=== PATIENT | male | born 1960 | race Caucasian/White ===

== ENCOUNTER 2017-04-29 09:27 | Day surgery (SDC) | payer OTHER ==
[2017-04-27 12:42] VITALS: BMI 33.2
--- NOTE | 2017-04-28 17:01 | HP ---
- Patient Scheduled date of Surgery: 04/29/17 Scheduled Surgical Procedure: Phacoemulsification and cataract extraction with PCIOL Affected Eye: Right Chief Complaint (Indication for surgery): Decreased vision affecting ADLs - Ocular History Other Eye History: Other (narrow angles) Eye Medications: vigamxo Previous Eye Surgery: s/p lasik surgery - Medical History Illnesses: Anemia, COPD, Hypertension, Hypercholesterolemia Current Medications: Ambulatory Orders Multivitamin [One Daily] 1 each PO DAILY 04/27/17 Naproxen Sodium [Aleve] 220 mg PO PRN PRN 04/27/17 Allergies/Adverse Reactions: Allergies Allergy/AdvReac Type Severity Reaction Status Date / Time amoxicillin Allergy "HIVES" Verified 04/27/17 12:42 Ocular Examination - Best Corrected Visual Acuity Distance: Right eye: LP Distance: Left eye: 20/50 - External/Slit Lamp Examination Abnormalities: narrow angles - Intraocular Pressure Intraocular Pressure - Right eye: 8 Intraocular Pressure-Left eye: 9 - Lens Lens: 4+ NS white with brunescence - Vitreous/Retina Vitreous/Retina: C:D no view, bscan retina flat - Special Examination M - Right eye: no reflex M - Left eye: _4.75 K - Right eye: 44/44.5 108 K - Left eye: 44/44.5 x 90 AL - Right eye: 23.64 AL - Left eye: 23.81 IOL bag: +19.5 d hoya 251 IOL sulcus: +19.0 d hoya 231 IOL AC: +16.5 d MTA 4uo - Impression Impression: Cataract Right Eye, Other (hypermature cataract right eye) - Plan Plan: Phacoemulsification and cataract extraction - IOL Right eye Post-hospital care will be provided in office on: 04/30/17
--- NOTE | 2017-04-28 17:01 | HP ---
History & Physical Update - History History: No Change - Physical Physical: No Change - Assessment Assessment: No Change - Plan Plan: No Change
[~2017-04-29 09:27] MED LIST: ACETAMINOPHEN 325 MG TABLET (FP) PO PRN; ACETYLCHOLINE 1:100 INTRA-OCUL 20 MG/2 ML KIT IO ONE; BSS (NA/CA/MG/K) BALANCED SALT SOLUTION OPHTH SOLN 15 ML BOTTLE OD ONE; CIPROFLOXACIN HCL 0.3% OPHTH 2.5ML BOTTLE OP SCH; DICLOFENAC SODIUM 0.1% OPHTHALMIC 2.5ML BOTTLE OP SCH; MANNITOL 25% 12.5 GM/50 ML VIAL IVPB ONE; PHENYLEPHRINE 2.5% OPHTH SOLN 15 ML BOTTLE OP SCH; POVIDONE-IODINE 5% OPHTHALMIC PREP 30 ML SOLUTION OD ONE; TOBRAMYCIN/DEXAMETHASONE OPHTH. OINTMENT 1 TUBE TP ONE; TROPICAMIDE 1% OPHTH SOLN 15 ML BOTTLE OP SCH
[2017-04-29] MEDS ORDERED: CIPROFLOXACIN 0.3% EYE DROPS 5 ML BOTTLE ONE (09:42)
[2017-04-29] MEDS ORDERED: PHENYLEPHRINE 2.5% OPHTH SOLN 15 ML BOTTLE ONE (09:42)
[2017-04-29] MEDS ORDERED: TROPICAMIDE 1% OPHTH SOLN 15 ML BOTTLE ONE (09:42)
[2017-04-29] MEDS ORDERED: DICLOFENAC SODIUM 0.1% OPHTHALMIC 2.5ML BOTTLE ONE (09:52)
[2017-04-29 09:58] VITALS: TEMP 98.2
[2017-04-29] MEDS ORDERED: MANNITOL 25% 12.5 GM/50 ML VIAL IVPB ONE ×3 (10:48→11:01)
[2017-04-29] MEDS ORDERED: MIDAZOLAM HCL 2 MG/2 ML SINGLE DOSE VIAL ONE (11:52)
[2017-04-29] MEDS ORDERED: TRYPAN BLUE 0.5 ML DISP.SYRIN ONE (11:56)
[2017-04-29] MEDS ORDERED: LIDOCAINE HCL/PF 2% SDV 5ML VIAL INF ONE (12:00)
[2017-04-29] MEDS ORDERED: BUPIVACAINE HCL/PF 0.75% 10 ML VIAL RB ONE (12:00)
[2017-04-29] MEDS ORDERED: POVIDONE-IODINE 5% OPHTHALMIC PREP 30 ML SOLUTION OD ONE (12:02)
[2017-04-29] MEDS ORDERED: EPINEPHrine/PF 1 MG/1 ML (1:1,000) AMPULE ONE (12:11)
[2017-04-29] MEDS ORDERED: TRYPAN BLUE 0.5 ML DISP.SYRIN TP ONE (12:13)
[2017-04-29] MEDS ORDERED: CHONDROITIN SU A/HYALUR SOD 1 KIT IO ONE (12:13)
[2017-04-29] MEDS ORDERED: EPINEPHrine/PF 1 MG/1 ML (1:1,000) AMPULE SQ ONE ×2 (12:13→12:23)
[2017-04-29] MEDS ORDERED: BSS (NA/CA/MG/K) BALANCED SALT SOLUTION OPHTH SOLN 15 ML BOTTLE OD ONE (12:13)
[2017-04-29] MEDS ORDERED: TOBRAMYCIN/DEXAMETHASONE OPHTH. OINTMENT 1 TUBE TP ONE (12:53)
--- NOTE | 2017-04-29 12:58 | OP ---
Ophthalmology Operative Note Pre-Operative Diagnosis: Other (hypermature intumescent cataract right eye) Affected Eye: Right Operation: Phacoemulsification and cataract extraction with PCIOL Findings: hypermature, intumescent cataract Post-Operative Diagnosis: Same as Pre-op Machine Stapler: Elina Anesthesiologist: Nicole Pearson Anesthesia: Retrobulbar Specimens Removed: none Estimated blood loss: < 1cc Drains & Tubes with Location: none Operative Report Dictated: Yes
[2017-04-29 13:29] VITALS: PULSE 100
[2017-04-29 13:51] VITALS: BP 150/84
--- NOTE | 2017-04-29 17:47 | OP ---
DATE OF OPERATION: 04/29/2017 PREOPERATIVE DIAGNOSIS: Hypermature cataract, right eye. POSTOPERATIVE DIAGNOSIS: Hypermature cataract, right eye. PROCEDURE: Phacoemulsification and cataract extraction with insertion of posterior chamber intraocular lens, right eye using trypan blue. SURGEON: Gianna Segura MD GAMBLING MONITOR: None. ANESTHESIA: Retrobulbar block. ANESTHESIOLOGIST: Nicole Pearson MD OPERATIVE PROCEDURE: The patient received 25 g of IV mannitol in 100 mL over 1/2 hour prior to the cataract surgery and then was brought to the operating room and given intravenous sedation. The patient then received local anesthesia using a 50/50 mixture of lidocaine 2% and Marcaine 0.75%. A Van Lint lid block was delivered to the right eye using 4 mL of the mixture and a retrobulbar injection using 4 mL of the mixture. The patient was then prepped and draped in the usual sterile fashion so as to expose only the right eye. Ophthalmic Betadine was instilled into the inferior fornix, and the lashes were taped out of the surgical field. An eyelid speculum was placed into the right eye. A paracentesis was made in superior clear cornea at the limbus. Next, 1 mL of dilute epinephrine 1:10,000 was injected into the anterior chamber. An air bubble was then injected into the anterior chamber, and trypan blue was dripped on the anterior capsular edge. Viscoelastic material was instilled into the anterior chamber via the paracentesis. A 2.4-mm keratome was then used to create the main incision in temporal clear cornea at the limbus. A continuous curvilinear capsulorrhexis was begun. However, continuous stream of milky fluid was released from the cataract. Therefore, this was aspirated, and the continuous curvilinear capsulorrhexis was completed using the cystotome and Utrata forceps. Hydrodissection was not performed because the nucleus was noted to be freely rotating on its own. The phacoemulsification tip was inserted via the main wound and used to sculpt 2 perpendicular grooves into the lens nucleus. The nucleus was crackled into 4 quadrants. Each quadrant was lifted out of the capsule into the iris plane and individually phacoemulsified. The remaining cortical material which was very scant was aspirated using the irrigation and aspiration port. The capsular bag was inflated using Provisc, and a preloaded Hoya lens model 251, power +19.5 diopters was injected into the capsular bag and centered using a Sinskey hook. The residual viscoelastic material was removed from the anterior chamber using irrigation and aspiration. The wound edges were hydrated using BSS. However, the chamber continued to shallow, and the wound was slightly leaky. Therefore, one 10-0 nylon suture was placed across the wound. The wound was again tested for leakage. It was found to be watertight. TobraDex ointment was placed in the eye. The speculum was removed from the eye, and the eyelid was closed. A sterile dressing and shield were placed over the eye, and the patient was transferred to the recovery room in stable condition, told to follow up in 1 day. GIANNA SEGURA M.D. [id number]
== END 2017-04-29 13:51 | disposition home or self-care (01) ==
LOC: JASU-SURG 09:27
PROVIDERS: ATTEND Ophthalmology
PROC: 08RJ3JZ Replacement of Right Lens with Synthetic Substitute, Percutaneous Approach (ICD-10-PCS; principal; 2017-04-29 10:30)
DX: H25.21 Age-related cataract, morgagnian type, right eye (principal)

== ENCOUNTER 2017-05-27 07:51 | Day surgery (SDC) | payer OTHER ==
[2017-05-26 10:57] VITALS: BMI 33.2
--- NOTE | 2017-05-26 17:33 | HP ---
History & Physical Update - History History: No Change - Physical Physical: No Change - Assessment Assessment: No Change - Plan Plan: No Change
--- NOTE | 2017-05-26 17:33 | HP ---
- Patient Scheduled date of Surgery: 05/27/17 Scheduled Surgical Procedure: Phacoemulsification and cataract extraction with PCIOL Affected Eye: Left Chief Complaint (Indication for surgery): Decreased vision affecting ADLs - Ocular History Other Eye History: Other (XT, narrow angles) Eye Medications: vigamox Previous Eye Surgery: s/p lasik, s/p ce/pciol OD 1:10,000 block - Medical History Illnesses: COPD (smoker) Current Medications: Ambulatory Orders Multivitamin [One Daily] 1 each PO DAILY 04/27/17 Allergies/Adverse Reactions: Allergies Allergy/AdvReac Type Severity Reaction Status Date / Time amoxicillin Allergy "HIVES" Verified 04/29/17 10:19 Ocular Examination - Best Corrected Visual Acuity Distance: Right eye: 20/20- Distance: Left eye: 20/60 - External/Slit Lamp Examination Abnormalities: none - Intraocular Pressure Intraocular Pressure - Right eye: 8 Intraocular Pressure-Left eye: 8 - Lens Lens: 2-3+ NS, 2+ cortical 2+ psc - Vitreous/Retina Vitreous/Retina: c:d 0.1 m/v/p wml - Special Examination M - Right eye: plano M - Left eye: -5.25-1.25 x 015 K - Right eye: 44.5/45 x 105 K - Left eye: 43.75/44.25 x 107 AL - Right eye: 23.64 AL - Left eye: 23.81 IOL bag: +19.5 d hoya 251 IOL sulcus: +19.0 hoya 231 IOL AC: +16.5 d MTA 4uo - Impression Impression: Cataract Left Eye - Plan Plan: Phacoemulsification and cataract extraction - IOL Left eye Post-hospital care will be provided in office on: 05/28/17
[~2017-05-27 07:51] MED LIST changes: -ACETAMINOPHEN 325 MG TABLET (FP) PO PRN; -ACETYLCHOLINE 1:100 INTRA-OCUL 20 MG/2 ML KIT IO ONE; -BSS (NA/CA/MG/K) BALANCED SALT SOLUTION OPHTH SOLN 15 ML BOTTLE OD ONE; -CIPROFLOXACIN HCL 0.3% OPHTH 2.5ML BOTTLE OP SCH; -DICLOFENAC SODIUM 0.1% OPHTHALMIC 2.5ML BOTTLE OP SCH; -MANNITOL 25% 12.5 GM/50 ML VIAL IVPB ONE; -PHENYLEPHRINE 2.5% OPHTH SOLN 15 ML BOTTLE OP SCH; -POVIDONE-IODINE 5% OPHTHALMIC PREP 30 ML SOLUTION OD ONE
[2017-05-27] MEDS ORDERED: LIDOCAINE HCL 2% JELLY (5 ML/TUBE) ONE (08:20)
[2017-05-27] MEDS ORDERED: BSS (NA/CA/MG/K) BALANCED SALT SOLUTION OPHTH SOLN 15 ML BOTTLE ONE (08:20)
[2017-05-27] MEDS ORDERED: TOBRAMYCIN/DEXAMETHASONE OPHTH. OINTMENT 1 TUBE ONE (08:20)
[2017-05-27] MEDS ORDERED: LIDOCAINE HCL/PF 1% SDV 5ML VIAL ONE (08:20)
[2017-05-27] MEDS ORDERED: DICLOFENAC SODIUM 0.1% OPHTHALMIC 2.5ML BOTTLE ONE (08:29)
[2017-05-27] MEDS ORDERED: PHENYLEPHRINE 2.5% OPHTH SOLN 15 ML BOTTLE ONE (08:29)
[2017-05-27] MEDS ORDERED: CIPROFLOXACIN 0.3% EYE DROPS 5 ML BOTTLE ONE (08:29)
[2017-05-27] MEDS: PHENYLEPHRINE 2.5% OPHTH SOLN 15 ML BOTTLE OP SCH ×3 (08:45→08:55)
[2017-05-27] MEDS: DICLOFENAC SODIUM 0.1% OPHTHALMIC 2.5ML BOTTLE OP SCH ×3 (08:45→08:55)
[2017-05-27] MEDS: TROPICAMIDE 0.5% OPHTHALMIC SOLN 15 ML BOTTLE ONE ×3 (08:45→08:55)
[2017-05-27] MEDS ORDERED: ACETAMINOPHEN 325 MG TABLET (FP) PO PRN (08:45)
[2017-05-27] MEDS: CIPROFLOXACIN HCL 0.3% OPHTH 2.5ML BOTTLE OP SCH ×3 (08:45→08:55)
[2017-05-27] MEDS: CYCLOPENTOLATE HCL 1% OPHTH SOLN 2 ML BOTTLE ONE ×3 (08:45→08:55)
[2017-05-27 08:51] VITALS: TEMP 98.4
[2017-05-27] MEDS ORDERED: CYCLOPENTOLATE HCL 1% OPHTH SOLN 2 ML BOTTLE OS SCH (09:30)
[2017-05-27] MEDS ORDERED: LIDOCAINE HCL 2% JELLY (5 ML/TUBE) TP ONE (09:43)
[2017-05-27] MEDS ORDERED: TRYPAN BLUE 0.5 ML DISP.SYRIN ONE (09:48)
[2017-05-27] MEDS ORDERED: EPINEPHrine/PF 1 MG/1 ML (1:1,000) AMPULE ONE (09:48)
[2017-05-27] MEDS ORDERED: MIDAZOLAM HCL 2 MG/2 ML SINGLE DOSE VIAL ONE (09:51)
[2017-05-27] MEDS ORDERED: POVIDONE-IODINE 5% OPHTHALMIC PREP 30 ML SOLUTION OS ONE (09:52)
[2017-05-27] MEDS ORDERED: CHONDROITIN SU A/HYALUR SOD 1 KIT IO ONE (09:59)
[2017-05-27] MEDS ORDERED: BSS (NA/CA/MG/K) BALANCED SALT SOLUTION OPHTH SOLN 15 ML BOTTLE OS ONE (09:59)
[2017-05-27] MEDS ORDERED: LIDOCAINE HCL 1% PRESERVATIVE FREE - 30ML VIAL IO ONE (09:59)
[2017-05-27] MEDS ORDERED: EPINEPHrine/PF 1 MG/1 ML (1:1,000) AMPULE SQ ONE ×2 (09:59→10:05)
[2017-05-27] MEDS ORDERED: TOBRAMYCIN/DEXAMETHASONE OPHTH. OINTMENT 1 TUBE TP ONE (10:21)
--- NOTE | 2017-05-27 10:28 | OP ---
Ophthalmology Operative Note Pre-Operative Diagnosis: Cataract Affected Eye: Left Operation: Phacoemulsification and cataract extraction with PCIOL Findings: cataract left eye Post-Operative Diagnosis: Same as Pre-op Superintendent Schools: None Anesthesiologist: Lexi Claros MD Anesthesia: Topical Specimens Removed: none Estimated blood loss: none Drains & Tubes with Location: none Operative Report Dictated: Yes
--- NOTE | 2017-05-27 10:51 | OP ---
DATE OF OPERATION: DATE OF DICTATION: 05/27/2017 PREOPERATIVE DIAGNOSIS: Nuclear sclerotic cataract, left eye. POSTOPERATIVE DIAGNOSIS: Nuclear sclerotic cataract, left eye. PROCEDURE: Phacoemulsification and cataract extraction with insertion of posterior chamber intraocular lens, left eye. SURGEON: Gianna Segura MD DATA PROCESSING MANAGER: None. ANESTHESIA: Topical. ANESTHESIOLOGIST: Lexi Claros MD OPERATIVE PROCEDURE: Following satisfactory intravenous sedation, the patient received viscous lidocaine gel 2% and then was prepped and draped in the usual sterile fashion so as to expose only the left eye. Ophthalmic Betadine was instilled into the inferior fornix. The lashes were taped out of the surgical field. An eyelid speculum was placed into the left eye. A paracentesis was made in inferior clear cornea at the limbus. Next, 0.5 mL of nonpreserved lidocaine 1% was injected into the anterior chamber. Next, 1 mL of dilute epinephrine 1:100,000 was injected into the anterior chamber. Viscoelastic material was instilled into the anterior chamber via the paracentesis. A 2.4-mm keratome was then used to create the main incision in temporal clear cornea at the limbus. A continuous curvilinear capsulorrhexis was performed using a cystotome and Utrata forceps. Hydrodissection of the lens cortex was performed using BSS on a cannula until the nucleus was noted to be freely rotating. The phacoemulsification tip was inserted via the main wound and used to sculpt 2 perpendicular grooves into the lens nucleus. The nucleus was cracked into 4 quadrants. Each quadrant was lifted out of the capsule into the iris plane and individually phacoemulsified. The remaining cortical material was then aspirated using the irrigation and aspiration port. The capsular bag was inflated using Provisc, and a preloaded Hoya lens model 251, power +19.5 diopters was injected into the capsular bag and centered using a Sinskey hook. The residual Viscoelastic material was removed from the anterior chamber using irrigation and aspiration. The wound edges were hydrated using BSS. The wound was tested for leakage. It was found to be watertight. TobraDex ointment was placed in the eye and the speculum was removed from the eye. The sterile dressing and shield were placed over the eye, and the patient was transferred to the recovery room and told to follow up in 1 day. GIANNA SEGURA M.D. [id number]
[2017-05-27 11:31] VITALS: BP 115/71; PULSE 73
== END 2017-05-27 12:00 | disposition home or self-care (01) ==
LOC: JASU-SURG 07:51
PROVIDERS: ATTEND Ophthalmology
PROC: 08RK3JZ Replacement of Left Lens with Synthetic Substitute, Percutaneous Approach (ICD-10-PCS; principal; 2017-05-27 09:15)
DX: H25.12 Age-related nuclear cataract, left eye (principal)